=== PATIENT | female | born 1980 | race Caucasian/White ===

== ENCOUNTER 2024-03-29 18:56 | Emergency (ER) | payer BC, SELFPAY ==
[2024-03-29 19:01] VITALS: BP 154/109
[2024-03-29 19:24] LABS: % Basophils 0.4 % (0-2); % Eosinophils 2.1 % (0-6); % Immature Granulocytes 0.2 % (0-0.5); % Lymphocytes 28.1 % (20.5-51.1); % Monocytes 6.2 % (1.7-9.3); Absolute Eosinophils 0.2 10^3/uL (0-0.7); Absolute Lymphocytes 2.3 10^3/uL (1.2-3.4); Absolute Monocytes 0.5 10^3/uL (0.1-0.6); Absolute Neutrophils 5.1 10^3/uL (1.4-6.5); Hematocrit 40.4 % (37.0-47.0); Hemoglobin 13.4 g/dL (12.0-16.0); Mean Corp Hgb Conc. 33.2 g/dL (33.0-37.0); Mean Corpuscular Hgb 29.1 pg (27.0-31.0); Mean Corpuscular Volume 87.8 fL (81.0-99.0); Mean Platelet Volume 9.1 fL (7.4-10.4); Nucleated Red Blood Cells % 0 %; Platelet Count 250 10^3/uL (130-400); Red Cell Dist. Width 13.2 % (11.5-14.5); White Blood Cell Count 8.1 10^3/uL (4.8-10.8)
[2024-03-29 19:43] LABS: ALT (SGPT) 17 U/L (0-35); AST (SGOT) 24 U/L (14-36); Albumin 4.5 g/dl (3.5-5.0); Alkaline Phosphatase 76 U/L (38-126); Blood Urea Nitrogen 12 mg/dl (7-17); Calcium 9.1 mg/dl (8.4-10.2); Carbon Dioxide 27 mmol/L (22-30); Chloride 98 mmol/L (98-107); Glucose 98 mg/dl (70-99); Potassium 4.4 mmol/L (3.5-5.1); Sodium 133 mmol/L (135-145); Total Bilirubin 0.6 mg/dl (0.2-1.3); Total Protein 7.4 g/dl (6.3-8.2); eGFR > 60.00
[2024-03-29 20:51] VITALS: BMI 24.2
[2024-03-29 21:01] VITALS: BP 126/93
[2024-03-29 22:14] VITALS: BP 124/77
[2024-03-29 22:15] VITALS: BP 124/77
[2024-03-29] MEDS: TYLENOL 1000 MG PO (22:20)
[2024-03-29] MEDS: TORADOL 15 MG IV (22:27)
[2024-03-29 23:00] VITALS: BP 107/95
--- NOTE | 2024-03-30 02:08 | ED.GENMED ---
History of Present Illness
General
Chief Complaint: Blood Pressure Problem
Source: patient
Exam Limitations: none
Time Seen by Provider: 03/29/24 21:04
Nursing documentation reviewed up to this point in time: agreed with
History of Present Illness
History of Present Illness:
44-year-old female with history as noted significant for single kidney status post organ donation who presents to the ER for evaluation of headache and hypertension. Patient notes that for the past 2 weeks she has been under a lot of stress at
work. She says that at work she tends to get a headache when she is very stressed. She also noticed that at the end of the day she has swollen ankles. She says that because of the symptoms she decided that she would start to monitor her blood
pressure and she noted that they have been running high with values as high as 150 systolic. Today she says that she had a more intense headache�occipital aching and it was associated with this high blood pressure and she decided to come to the ER.
She denies any change in vision or speech, weakness or numbness in her extremities. She has not had any chest pain or breathing difficulties. She denies any trauma to the head. She denies any neck pain. She denies any other complaints. She
denies any known history of hypertension.
Review of Systems
Review of Systems
All Other Systems: ROS reviewed and negative except as documented in HPI and ROS
Constitutional: Denies fever
Respiratory: Denies trouble breathing
Cardiac: Denies chest pain
ABD/GI: Denies abdominal pain or vomiting
: Denies flank pain
Musculoskeletal: Reports edema; Denies neck pain or back pain
Neurological: Reports headache; Denies dizzy
Phy Exam
Physical Exam
Physical Exam:
General: Awake, alert, oriented x3; no acute distress
Head: Normocephalic, atraumatic
Eyes: Conjunctiva normal, EOMI, pupils equal round and reactive to light bilaterally
Throat: Airway intact, handling secretions
Neck: Trachea midline, supple without meningismus
Lungs: Clear to auscultation bilaterally, no wheezing, rales, rhonchi
Heart: Regular rate and rhythm, no murmurs, gallops, or rubs
Neuro: Cranial nerves intact, speech fluid, motor and sensory intact in all extremities, no limb ataxia
Extremities: No edema in extremities, equal pulses in all extremities
Scores
Heart Failure Risk
Heart Failure Risk Score: Not Applicable
Heart Score for Chest Pain Patients
STEMI patient?: Not applicable
Withdrawal Assessment of Alcohol
Withdrawal Assessment Completed?: Not applicable
Course
Orders/Labs/Results
Orders:
Orders
03/29/24 19:04
EKG [Electrocardiogram (*1)] Urgent
Reason for Study: Fatigue / Weakness
03/29/24 19:05
EKG- Treatment ONCE
03/29/24 19:14
Complete Blood Count/With Diff Urgent
Comprehensive Metabolic Panel Urgent
03/29/24 21:05
CT Head W/o Iv Contrast Urgent
Comment:
Reason For Exam: headache, hypertension
03/29/24 22:14
Acetaminophen [Tylenol] 1,000 mg PO NOW STA
Ketorolac [Toradol] 15 mg IV NOW STA
Abnormal Lab Results
03/29/24
19:14
Sodium 133 L mmol/L
(135-145)
03/29/24 19:14
03/29/24 19:14
Vital Signs
Initial and Last Documented VS:
Initial Vital Signs
Temp Pulse Resp BP Pulse Ox
36.9 C 97 18 154/109 100
03/29/24 19:01 03/29/24 19:01 03/29/24 19:01 03/29/24 19:01 03/29/24 19:01
Last Documented Vital Signs
Temp Pulse Resp BP Pulse Ox
36.9 C 94 18 107/95 99
03/29/24 19:01 03/29/24 22:15 03/29/24 22:15 03/29/24 23:00 03/29/24 23:00
MDM/Problems Addressed
Differential Diagnosis Includes:
Tension headache, migraine headache, brain bleed less likely
MDM/Problems Addressed:
44-year-old female presents for evaluation of headache and high blood pressures for the past few weeks. She notes that symptoms have been occurring in the setting of stress at work. She was hypertensive on arrival here normalized by my assessment.
Rest of vitals normal. Lab work sent off including a CBC and CMP are unremarkable. EKG sinus rhythm. CT head negative for any acute pathology. She was treated symptomatically and headache resolved. Suspect that blood pressure is a result of
headache rather than a cause; suspect that symptoms are being exacerbated by stress at work. Given work note for the next few days, encouraged to drink plenty of fluids get good sleep and reassess blood pressure and symptoms�if blood pressure is
remaining high we will need to see her primary to discuss if she needs medication. She indicates understanding and feels comfortable with this plan. All questions answered.
Acute Exacerbation and/or Progression of Chronic Illness:
Acutely hypertensive resolved dementia continue to monitor but no additional antihypertensives indicated at this point
Acute Exacerbation and/or Progression of Chronic Illness: HTN
*Radiology
Radiology exam reviewed: radiology read reviewed
*Pulse Oximetry
Patient hypoxic: no
*EKG
Interpreted by ED Provider?: Yes
Heart Rate: 90
Rate: normal
Rhythm: sinus
[place]: normal axis
Interval: normal interval
QRS Pattern: normal QRS
Ischemia: no ischemia
*Critical Care Note
Total Time (30-74mins, 75-104mins- exclusive of procedures): Not Applicable
Data Reviewed
Source: patient, records and spouse
ED Attending Note
-
Portions of this chart may have been created with voice recognition software.� Occasional wrong word or��sound alike� substitutions may have occurred due to the inherent limitations of voice recognition software.
Discharge Plan
Departure
Patient Disposition: Home (Routine Discharge)
Date of Disposition: 03/29/24
Time of Disposition: 23:08
Patient with high blood pressure during this ER visit?: Yes
Discharge Problem:
Hypertension, Headache
Instructions: BLOOD PRESSURE
Prescriptions:
New
[id number] [Fioricet] 50-300-40 mg capsule
1 cap PO TID PRN (Reason: Pain) Qty: 10 0RF
No Action
Vyvanse
PO
Referrals:
UNKNOWN - PT DOES,NOT KNOW [Family Provider] -
Stand Alone Forms: Return to Work
Activity Restrictions/Additional Instructions:
Thank you for visiting the Emergency Department at [facility].
1. Please schedule a follow up appointment as directed. Call first thing tomorrow morning to make an appointment.
2. If indicated, please take your medications as instructed and indicated on discharge paperwork.
3. If any of your symptoms do not improve, or persist, or become more severe within 6-12 hours, please return to the emergency department for further care.
4. Please return to the emergency department if you develop a headache, neck pain/stiffness, fever greater than 100.4F, chest pain, shortness of breath, persistent nausea, vomiting, slurred speech, difficulty walking, numbness/tingling, weakness,
signs of infection or any other symptoms that are worrisome to you.
Please call [phone] if you have any questions.
Interventions
Interventions:
*Risk Screen - Suicide Last Done: 03/29/24 19:01
*General Assessment Last Done: 03/29/24 19:01
*Neglect/Abuse Screening Last Done: 03/29/24 19:01
ED- Fall Risk Assessment Last Done: 03/29/24 20:51
*ED COVID-19 Vaccine History Last Done: 03/29/24 19:01
*Nursing Disposition Last Done: 03/29/24 23:28
ED- Cardiac Assessment Last Done: 03/29/24 20:51
ED- Neurological Assessment Last Done: 03/29/24 20:51
ED- Pulmonary Assessment Last Done: 03/29/24 20:51
Discharge Date and Time
Discharge Date/Time: 03/29/24 23:30
Print Language: SPANISH
== END 2024-03-29 23:30 | disposition home or self-care (01) ==
LOC: EMR 18:56
PROVIDERS: Emergency Medicine; EMERGENCY PHYSICIAN Emergency Medicine
DX: R51.9 Headache, unspecified (principal); I10 Essential (primary) hypertension; Z52.4 Kidney donor
CPT/HCPCS: 96374; 99284; 70450; 80053; 85025; 93005